=== PATIENT | female | born 1985 | race Caucasian/White ===

== ENCOUNTER 2023-12-04 15:58 | Outpatient (CLI) | payer BC, SELFPAY | END 2023-12-04 15:59 | disposition home or self-care (01) | PROVIDERS: Visit Provider Family Medicine | DX: R10.13 Epigastric pain (principal); R12 Heartburn; Z13.220 Encounter for screening for lipoid disorders | CPT/HCPCS: 80053; 80061; 84443 ==

== ENCOUNTER 2023-12-06 16:15 | Outpatient (CLI) | payer BC, SELFPAY | END 2023-12-06 16:16 | disposition home or self-care (01) | LOC: NFLDREF 12-11 16:23 | PROVIDERS: Visit Provider Family Medicine | DX: R10.13 Epigastric pain (principal); R12 Heartburn | CPT/HCPCS: 87338 ==

== ENCOUNTER 2024-05-26 14:15 | Outpatient (CLI) | payer BC, SELFPAY | END 2024-05-26 14:16 | disposition home or self-care (01) | PROVIDERS: PCP Family Medicine; Visit Provider Obstetrics & Gynecology | DX: L65.9 Nonscarring hair loss, unspecified (principal) | CPT/HCPCS: 84443 ==